=== PATIENT | male | born 1960 | race Caucasian/White ===

== ENCOUNTER → 2017-12-22 | Outpatient (CLI) | payer OTHER | END | disposition home or self-care (01) | LOC: LAB SHORT 08:05 → PLD 08:05 | DX: D03.39 Melanoma in situ of other parts of face (principal) | CPT/HCPCS: 88305 ==

== ENCOUNTER → 2018-01-06 | Outpatient (CLI) | payer OTHER | END | disposition home or self-care (01) | LOC: LAB SHORT 08:06 → PLD 08:06 | DX: D23.62 Other benign neoplasm of skin of left upper limb, including shoulder (principal); D23.61 Other benign neoplasm of skin of right upper limb, including shoulder; D23.22 Other benign neoplasm of skin of left ear and external auricular canal | CPT/HCPCS: 88305 ==